=== PATIENT | male | born 1985 | race African-American/Black ===

== ENCOUNTER 2018-01-06 13:55 | Emergency (ER) | payer SELFPAY ==
[~2018-01-06] VITALS: Ht 175.3 cm; Wt 64.0 kg
[2018-01-06 14:10] VITALS: BP 109/62
[2018-01-06] MEDS ORDERED: KETOROLAC 30MG/ML VIAL IV STA (18:16)
[2018-01-06] MEDS ORDERED: SODIUM CHLORIDE 0.9% 1,000 ML IV ONE (18:16)
[2018-01-06] MEDS ORDERED: ONDANSETRON HCL 4MG/2ML INJ IV STA (18:16)
[2018-01-06 19:06] LABS: BASOPHILS % 0.7 % (0.0-2.0); EOSINOPHILS % 6.3 % (0.0-5.0); HEMATOCRIT. 43.1 % (42.0-52.0); HEMOGLOBIN. 13.9 g/dL (14.0-18.0); LYMPHOCYTES % 41.4 % (20.0-50.0); MEAN CORPUSCULAR HEMOGLOBIN 29.9 pg (28.0-32.0); MEAN CORPUSCULAR VOLUME 92.7 fL (80.0-94.0); MEAN PLATELET VOLUME 8.6 fl (7.4-10.4); MONOCYTES % 10.5 % (2.0-8.0); NEUTROPHILS % 41.1 % (40.0-76.0); PLATELET 186 x1000/uL (130-400); RED BLOOD CELL COUNT 4.65 mill/uL (4.7-6.1)
[2018-01-06 19:10] LABS: CHLORIDE 106 mEq/L (98-107)
[2018-01-06 19:14] LABS: INR 1.2; PROTHROMBIN TIME 11.6 sec (9.1-11.1)
== END 2018-01-06 20:02 | disposition home or self-care (01) ==
LOC: ER 13:55
DX: R10.9 Unspecified abdominal pain (principal); R11.2 Nausea with vomiting, unspecified; F12.10 Cannabis abuse, uncomplicated
CPT/HCPCS: 36415; 80053; 83690; 85025; 85610; 99284; J7030

== ENCOUNTER 2018-09-07 08:19 | Emergency (ER) | payer SELFPAY ==
[~2018-09-07] VITALS: Ht 175.3 cm; Wt 64.0 kg
[2018-09-07] MEDS ORDERED: KETOROLAC 60MG/2ML VIAL IM ONE (09:00)
[2018-09-07 09:10] VITALS: BP 124/72
== END 2018-09-07 09:21 | disposition home or self-care (01) ==
LOC: ER 08:33
DX: K04.7 Periapical abscess without sinus (principal)
CPT/HCPCS: 99283

== ENCOUNTER 2018-09-15 15:26 | Emergency (ER) | payer SELFPAY | END 2018-09-15 16:51 | disposition left against medical advice (07) | LOC: ER 15:26 | DX: Z53.21 Procedure and treatment not carried out due to patient leaving prior to being seen by health care provider (principal) ==

== ENCOUNTER 2018-09-17 05:53 | Emergency (ER) | payer SELFPAY ==
[~2018-09-17] VITALS: Ht 177.8 cm; Wt 64.0 kg
[2018-09-17 06:45] VITALS: BP 108/60
== END 2018-09-17 06:47 | disposition home or self-care (01) ==
LOC: ER 05:53
DX: Z76.89 Persons encountering health services in other specified circumstances (principal); K03.81 Cracked tooth
CPT/HCPCS: 99281

== ENCOUNTER 2019-02-28 09:55 | Emergency (ER) | payer SELFPAY ==
[~2019-02-28] VITALS: Ht 175.3 cm; Wt 64.0 kg
[2019-02-28 10:03] VITALS: BP 130/79
== END 2019-02-28 10:52 | disposition home or self-care (01) ==
LOC: ER 10:26
DX: K04.7 Periapical abscess without sinus (principal); F12.10 Cannabis abuse, uncomplicated
CPT/HCPCS: 99283

== ENCOUNTER 2019-03-04 12:59 | Emergency (ER) | payer SELFPAY ==
[~2019-03-04] VITALS: Ht 177.8 cm; Wt 64.0 kg
[2019-03-04 14:53] VITALS: BP 127/68
== END 2019-03-04 14:55 | disposition home or self-care (01) ==
LOC: ER 12:59
DX: K08.89 Other specified disorders of teeth and supporting structures (principal); R11.2 Nausea with vomiting, unspecified; F12.90 Cannabis use, unspecified, uncomplicated
CPT/HCPCS: 99283

== ENCOUNTER 2019-11-11 12:46 | Emergency (ER) | payer MEDICAID ==
[~2019-11-11] VITALS: Ht 175.3 cm; Wt 64.0 kg
[2019-11-11] MEDS ORDERED: ONDANSETRON 4MG ODT PO ONE (14:15)
[2019-11-11] MEDS ORDERED: IBUPROFEN 600MG TABLET PO ONE (14:15)
[2019-11-11 14:26] VITALS: BP 122/77
== END 2019-11-11 15:47 | disposition home or self-care (01) ==
LOC: ER 12:46
DX: S09.8XXA Other specified injuries of head, initial encounter (principal); M25.511 Pain in right shoulder; V49.40XA Driver injured in collision with unspecified motor vehicles in traffic accident, initial encounter; Y93.89 Activity, other specified; Y92.488 Other paved roadways as the place of occurrence of the external cause
CPT/HCPCS: 73030; 99283; Q0162

== ENCOUNTER 2019-12-16 08:27 | Emergency (ER) | payer SELFPAY ==
[~2019-12-16] VITALS: Ht 175.3 cm; Wt 66.0 kg
[2019-12-16 08:46] VITALS: BP 106/64
[2019-12-16] MEDS ORDERED: IBUPROFEN 600MG TABLET PO ONE (09:15)
== END 2019-12-16 09:25 | disposition home or self-care (01) ==
LOC: ER 08:47
DX: K08.89 Other specified disorders of teeth and supporting structures (principal); R03.0 Elevated blood-pressure reading, without diagnosis of hypertension; F12.90 Cannabis use, unspecified, uncomplicated
CPT/HCPCS: 99283

== ENCOUNTER 2020-03-01 10:59 | Emergency (ER) | payer SELFPAY ==
[~2020-03-01] VITALS: Ht 182.9 cm; Wt 71.0 kg
[2020-03-01 11:50] VITALS: BP 120/70
== END 2020-03-01 12:03 | disposition home or self-care (01) ==
LOC: ER 10:59
DX: Z03.818 Encounter for observation for suspected exposure to other biological agents ruled out (principal); F12.10 Cannabis abuse, uncomplicated
CPT/HCPCS: 99281